=== PATIENT | female | born 1935 | race Caucasian/White ===

== ENCOUNTER → 2020-11-13 | Outpatient (CLI) | payer OTHER ==
[2020-11-13 08:49] LABS: BUN/CREATININE RATIO 23 (0-10)
== END ==
LOC: MAMO 07:47
PROVIDERS: Emergency Medicine
DX: Z12.31 Encounter for screening mammogram for malignant neoplasm of breast (principal); E78.2 Mixed hyperlipidemia; I12.9 Hypertensive chronic kidney disease with stage 1 through stage 4 chronic kidney disease, or unspecified chronic kidney disease; N18.30 Chronic kidney disease, stage 3 unspecified
CPT/HCPCS: 36415; 77063; 77067; 80053

== ENCOUNTER 2021-09-01 12:57 | Observation (INO) | payer OTHER ==
[~2021-09-01] VITALS: Ht 160 cm; Wt 59.0 kg
[2021-09-01 14:04] LABS: HEMOGLOBIN 11.5 gm/dl (12.3-15.3); RED BLOOD COUNT 4.01 M/UL (4.00-5.10); WHITE BLOOD COUNT 7.4 K/UL (4.5-11.0)
[2021-09-01 14:23] LABS: BUN/CREATININE RATIO 24 (0-10)
[2021-09-01] MEDS ORDERED: ELIQUIS5 MG PO (16:51)
[2021-09-01] MEDS ORDERED: ATORVASTATIN CA40 MG PO (16:51)
[2021-09-01] MEDS ORDERED: MECLIZINE HCL12.5 MG PO (16:52)
[2021-09-01] MEDS ORDERED: METOPROLOL SUCC25 MG PO (16:52)
[2021-09-01] MEDS ORDERED: GLUCOSAMINE SU500 M1 PO (16:53)
[2021-09-02 03:01] LABS: HEMOGLOBIN 10.5 gm/dl (12.3-15.3); RED BLOOD COUNT 3.63 M/UL (4.00-5.10); WHITE BLOOD COUNT 6.1 K/UL (4.5-11.0)
[2021-09-02 03:28] LABS: BUN/CREATININE RATIO 29 (0-10)
--- NOTE | 2021-09-02 16:04 | NUR ---
MADE DR. CLAY AWARE THAT THE RESULTS OF THE CT ARE BACK AND HE SAID THAT HE WILL LOOK AT IT LATER.
--- NOTE | 2021-09-02 18:04 | NUR ---
NOTIFIED Santosh WISE OF THE CT RESULTS AND HE INFORMED DR. CLAY AND HE ACKKNOWLEDGED IT.
== END 2021-09-02 19:43 | disposition home or self-care (01) ==
LOC: ER1 12:57 → M/S 15:41 → CDU 15:41 → M/S 20:52
PROVIDERS: Emergency Medicine; Physician Assistant Medical; ADMIT Internal Medicine
DX: R55 Syncope and collapse (principal); I95.9 Hypotension, unspecified; I51.81 Takotsubo syndrome; I10 Essential (primary) hypertension; E78.5 Hyperlipidemia, unspecified; I65.23 Occlusion and stenosis of bilateral carotid arteries; I72.0 Aneurysm of carotid artery; I34.0 Nonrheumatic mitral (valve) insufficiency; I25.2 Old myocardial infarction; D64.9 Anemia, unspecified; Z20.822 Contact with and (suspected) exposure to COVID-19; Z86.73 Personal history of transient ischemic attack (TIA), and cerebral infarction without residual deficits; Z79.01 Long term (current) use of anticoagulants; Z79.899 Other long term (current) drug therapy; Z98.890 Other specified postprocedural states
CPT/HCPCS: ECHO; 36415; 70450; 70496; 70498; 71045; 80048; 80053; 81001; 82550; 82553; 83605; 83735; 83874; 84484; 85025; 85027; 93005; 93306; 93880; 99285; G0378; Q9967; U0002